=== PATIENT | female | born 1960 | race Caucasian/White ===

== ENCOUNTER 2017-01-11 19:52 | Emergency (ER) | payer OTHER ==
[~2017-01-11] VITALS: Ht 162.6 cm; Wt 77.1 kg
[2017-01-11 20:00] VITALS: BP 136/63
[2017-01-11] MEDS ORDERED: HYDROcodone/APAP 5/325MG 1 TAB TABLET PO ONE (21:15)
[2017-01-11] MEDS ORDERED: IBUPROFEN 600 MG TABLET. PO ONE (21:15)
[2017-01-11] MEDS ORDERED: IBUP600T16 PO (22:07)
[2017-01-11] MEDS ORDERED: HYDR-971 PO (22:07)
--- NOTE | 2017-01-11 22:07 | PHYS DOC ---
Past History Past Medical History: Arthritis, Hypothyroid Past Surgical History: No Surgical History Alcohol Use: None Drug Use: None Adult General Chief Complaint Chief Complaint: FINGER INJURY HPI HPI Patient is a 56-year-old female who presents here today complaining of pain to her right pinky finger that occurred while she was taken care of her baby. Patient reports that she tried to grab the baby and felt a pop to her pinky finger. Patient presents here today complaining of pain in that area. Patient has full range of motion to that finger without any complaints of restriction other than from pain. This is a 56-year-old female who presents to the ER today with a fracture to her fifth MCP. Patient's been placed in a ulnar gutter splint to give her support and protection of that fracture. Fracture does not appear to be significantly dislocated or shortened. Patient be given the phone number for Dr. Mcclain and will be instructed to follow-up with her primary care physician for further evaluation of the fracture. Patient be given a prescription for ibuprofen and [place] to help her with her pain. Ulnar gutter splint was applied. Patient is neurovascularly intact after splint application. Review of Systems Review of Systems Constitutional: Denies fever or chills [] Eyes: Denies change in visual acuity, redness, or eye pain [] HENT: Denies nasal congestion or sore throat [] All other review systems are negative except as documented in the history of present illness portion. Current Medications Current Medications Current Medications Medications (Trade) Dose Ordered Sig/Kisha Start Time Stop Time Status Last Admin Dose Admin Acetaminophen/ Hydrocodone Bitart (Lortab 5/325) 1 tab 1X ONCE 01/11/17 21:15 01/11/17 21:24 DC 01/11/17 21:15 1 TAB Ibuprofen (Motrin) 600 mg 1X ONCE 01/11/17 21:15 01/11/17 21:24 DC 01/11/17 21:15 600 MG Allergies Allergies Allergies Coded Allergies Type Severity Reaction Last Updated Verified No Known Drug Allergies 01/11/17 No Physical Exam Physical Exam Constitutional: Well developed, well nourished, no acute distress, non-toxic appearance. HENT: Normocephalic, Eyes: no discharge. Neck: Normal range of motion Cardiovascular:Heart rate regular rhythm Lungs & Thorax: Bilateral breath sounds clear to auscultation Abdomen: Bowel sounds normal, soft, no tenderness, no masses, no pulsatile masses. Skin: Warm, dry, no erythema, no rash. Extremities: Tenderness to palpation with soft tissue swelling to her proximal phalanx of her fifth digit on the right hand. Full range of motion was intact. No deformity consistent with dislocation. Neurovascularly intact. Neurologic: Alert and oriented X 3, normal motor function, normal sensory function, no focal deficits noted. Psychologic: Affect normal, judgement normal, mood normal. Current Patient Data Vital Signs Vital Signs Date Time Temp Pulse Resp B/P (MAP) Pulse Ox O2 Delivery O2 Flow Rate FiO2 01/11/17 20:00 97.9 87 18 98 Room Air EKG EKG [] Radiology/Procedures Radiology/Procedures [] Course & Med Decision Making Course & Med Decision Making Pertinent Labs and Imaging studies reviewed. (See chart for details) [] Dragon Disclaimer Dragon Disclaimer This chart was dictated in whole or in part using Voice Recognition software in a busy, high-work load, and often noisy Emergency Department environment. It may contain unintended and wholly unrecognized errors or omissions. Departure Departure: Impression: Primary Impression: Fracture of proximal phalanx of finger of right hand Disposition: HOME, SELF-CARE Condition: IMPROVED Referrals: THONG CRUZ (PCP) ROBSON MCCLAIN MD Patient Instructions: Cast or Splint Care, Finger Fracture (Phalangeal)- [facility] Additional Instructions: Please call Dr. Robson Mcclain for an appointment. He is one of our orthopedists from [facility]. Please make sure you let him know that you're seen and evaluated here at [facility] so they can expedite your appointment. Scripts Hydrocodone Bit/Acetaminophen (NORCO 5-325 TABLET) 1 Each Tablet 1 TAB PO PRN Q6HRS Y for PAIN, #12 TAB 0 Refills Prov: BROCK HUDSON MD 01/11/17 Ibuprofen (IBUPROFEN) 600 Mg Tablet 600 MG PO QID Y for PAIN, #20 Prov: BROCK HUDSON MD 01/11/17 BROCK HUDSON MD Jan 11, 2017 22:07
--- NOTE | 2017-01-12 07:44 | RAD ---
Exam: Right fingers radiograph 01/11/2017 at 2021 hours Indication: Right fifth digit injury Comparison: None available Technique: 4 views of the right fingers are provided. Findings: There is obliquely oriented displaced and comminuted fracture of the proximal phalanx the fifth digit. There is suggestion of intra-articular extension to the metacarpophalangeal joint. Mild apex dorsal angulation. No osseous erosion or soft tissue gas. Bone mineralization is within normal limits. Impression: Obliquely oriented comminuted and displaced fracture of the proximal phalanx of the fifth digit with suggestion of intra-articular extension to the metacarpophalangeal joint.
== END 2017-01-11 22:09 | disposition home or self-care (01) ==
LOC: ER 19:52
DX: S62.616A Displaced fracture of proximal phalanx of right little finger, initial encounter for closed fracture (principal); E03.9 Hypothyroidism, unspecified; M19.90 Unspecified osteoarthritis, unspecified site; X58.XXXA Exposure to other specified factors, initial encounter; Y93.89 Activity, other specified; Y99.8 Other external cause status; Y92.89 Other specified places as the place of occurrence of the external cause
CPT/HCPCS: 29125; 73140; 99284-25

== ENCOUNTER → 2017-01-20 | Outpatient (CLI) | payer OTHER ==
[2017-01-11 20:00] VITALS: BP 136/63
[~2017-01-20] MED LIST: HYDR-971 PO; IBUP600T16 PO
--- NOTE | 2017-01-20 10:55 | RAD ---
Right Little finger, 3 views, 01/20/2017: History: Follow-up fracture Comparison is made to a study from 01/11/2017. There is a nondisplaced fracture of the proximal phalanx of the little finger. Its alignment has improved since the previous study. The fracture fragments appear to be in good position for healing. No bridging callus is evident. No other fracture or dislocation is seen. IMPRESSION: Improved alignment of the nondisplaced fracture of the proximal phalanx of the little finger.
== END | disposition home or self-care (01) ==
LOC: DXRAD 09:56
PROVIDERS: ATTEND Orthopaedic Surgery
DX: S62.646D Nondisplaced fracture of proximal phalanx of right little finger, subsequent encounter for fracture with routine healing (principal); X58.XXXD Exposure to other specified factors, subsequent encounter
CPT/HCPCS: 73140

== ENCOUNTER → 2017-02-08 | Outpatient (CLI) | payer OTHER ==
[2017-01-11 20:00] VITALS: BP 136/63
--- NOTE | 2017-02-08 13:57 | RAD ---
Bone densitometry scan, 02/08/2017: History: Ovarian failure, osteoporosis The lumbar spine and right hip were examined utilizing a DEXA technique. The bone mineral density in the lumbar spine as measured from the L1-L4 levels is 1.03 g/sq cm. This yields a T score of -1.2 compatible with osteopenia. The total T score at the right hip is -0.8 which is in the normal range. IMPRESSION: Osteopenia in the lumbar spine.
== END | disposition home or self-care (01) ==
LOC: DXRAD 13:07
PROVIDERS: ATTEND Obstetrics & Gynecology
DX: M85.88 Other specified disorders of bone density and structure, other site (principal); M81.0 Age-related osteoporosis without current pathological fracture
CPT/HCPCS: 77080

== ENCOUNTER 2017-05-19 19:56 | Emergency (ER) | payer OTHER ==
[~2017-05-19] VITALS: Ht 162.6 cm; Wt 66.7 kg
[2017-05-19] MEDS ORDERED: ONDANSETRON ODT 4 MG TAB.RAPDIS PO ONE (20:15)
[2017-05-19] MEDS ORDERED: PROMETHAZINE 25 MG TABLET. PO ONE (20:15)
[2017-05-19 20:55] LABS: BACTERIA,URINE FEW /HPF (0-FEW); BILIRUBIN,URINE NEG (NEG); CLARITY,URINE CLOUDY; COLOR,URINE YELLOW; GLUCOSE,URINE NEG (NEG); NITRITE,URINE NEG (NEG); RBC,URINE 20-40 /HPF (0-2); SQUAMOUS EPITHELIAL CELL,UR MANY /LPF; UROBILINOGEN,URINE 1 mg/dL (0.2 mg/dL)
[2017-05-19] MEDS ORDERED: PROMETHAZINE 25 MG in IV NORMAL SALINE 50ML 50 ML IV PRN (21:00)
[2017-05-19] MEDS ORDERED: FAMOTIDINE 20 MG/2 ML VIAL IVP ONE (21:15)
[2017-05-19] MEDS ORDERED: IV NORMAL SALINE 1,000ML 1,000 ML IV SCH ×2 (21:15→23:00)
[2017-05-19] MEDS ORDERED: ONDANSETRON PF 4 MG/2 ML VIAL. IV ONE (21:15)
[2017-05-19 21:32] LABS: BASO % 0 % (0-3); EOS % 0 % (0-3); HEMATOCRIT 40.2 % (36.0-47.0); HEMOGLOBIN 13.8 g/dL (12.0-15.5); LYMPH # 0.5 x10^3/uL (1.0-4.8); LYMPH % 5 % (24-48); MEAN CORPUSCULAR HEMOGLOBIN 31 pg (25-35); MEAN CORPUSCULAR HGB CONC 35 g/dL (31-37); MEAN CORPUSCULAR VOLUME 89 fL (79-100); MONO # 0.3 x10^3/uL (0.0-1.1); MONO % 3 % (0-9); NEUT # 9.4 x10^3uL (1.8-7.7); NEUT % 92 % (31-73); PLATELET COUNT 225 x10^3/uL (140-400); RED BLOOD COUNT 4.52 x10^6/uL (3.50-5.40); RED CELL DISTRIBUTION WIDTH 13.3 % (11.5-14.5); WHITE BLOOD COUNT 10.3 x10^3/uL (4.0-11.0)
[2017-05-19] MEDS ORDERED: IV NORMAL SALINE 50ML 50 ML ONE (21:41)
[2017-05-19] MEDS ORDERED: PROMETHAZINE 25 MG/ML VIAL IV ONE (21:41)
[2017-05-19 21:42] LABS: ALBUMIN 3.8 g/dL (3.4-5.0); ALBUMIN/GLOBULIN RATIO 1.1 (1.0-1.7); CALCIUM 8.4 mg/dL (8.5-10.1); CREATININE 0.8 mg/dL (0.6-1.0); GFR 73.4; POTASSIUM 3.4 mmol/L (3.5-5.1); TOTAL BILIRUBIN 0.5 mg/dL (0.2-1.0); TOTAL PROTEIN 7.4 g/dL (6.4-8.2)
--- NOTE | 2017-05-19 21:58 | PHYS DOC ---
General Chief Complaint: NAUSEA/VOMITING/DIARRHEA Stated Complaint: FEVER,VOMITING Time Seen by MD: 20:00 Source: patient Exam Limitations: no limitations Problems: History of Present Illness Initial Comments Patient is a 57-year-old female who comes to the ED complaining of vomiting and diarrhea. Patient states that she awoke at midnight with epigastric discomfort and cramping, she states that she's had intermittent periods of vomiting and diarrhea since that time. She states she's been unable to keep anything down, denies any focal abdominal pain complaints and no blood in stools or emesis. She 's had chills and sweats no measured fevers, the past few hours she's had a headache especially when sitting up and trying to walk. Denies any chest pain or difficulty breathing no travel or bad food exposure. She is afebrile on arrival heart rate 107 beats per minute and is very nauseous pale and ill- appearing. Timing/Duration: other Severity: severe Modifying Factors: worse with eating Associated Symptoms: headaches, nausea/vomiting, other Allergies: Coded Allergies: No Known Drug Allergies (Unverified , 01/11/17) Past Medical History Medical History: arthritis, other (hypothyroid) Surgical History: no surgical history Social History Smoker: non-smoker Alcohol: none Drugs: none Review of Systems Constitutional: chills, denies diaphoresis, denies fever, malaise Respiratory: denies cough, denies shortness of breath Cardiovascular: denies chest pain, denies palpitations Gastrointestinal: see HPI Genitourinary: denies dysuria, denies frequency, denies hematuria Musculoskeletal: denies back pain, denies joint swelling, denies neck pain Psychiatric/Neurological: headache, denies numbness, denies paresthesia Physical Exam General Appearance: WD/WN, moderate distress Ear, Nose, Throat: hearing grossly normal, normal ENT inspection, normal pharynx (dry mucous membranes) Neck: non-tender, supple Respiratory: normal breath sounds, no respiratory distress Cardiovascular: normal peripheral pulses, tachycardia Gastrointestinal: soft (nondistended, abdominal muscle tenderness without rebound guarding or palpable mass negative Dhaliwal negative McBurney) Rectal: deferred Back: no CVA tenderness, no vertebral tenderness Extremities: non-tender, normal inspection Neurologic/Psychiatric: rack pusher II-XII nml as tested, no motor/sensory deficits, alert, oriented x 3 Skin: pallor (poor turgor) Orders, Labs, Meds 2157: Labs reviewed with the patient, potassium 3.4 and urinalysis with contamination. The patient is just now receiving her IV hydration, time in department is over 2 hours she will have a prolonged ED course due to high ED volume and need for IV hydration. Phenergan and Zofran resolved the patient's nausea with no further emesis. She was rechecked after 1 L normal saline IV bolus and her headache had resolved she was still feeling very weak, after repeat bolus the patient was feeling much better. I discussed signs and symptoms to monitor as well as indications for urgent return to the department. Discussed oral hydration and dietary modification, patient's questions were answered she expressed agreement and understanding of treatment plan Departure Time of Disposition: 23:42 Disposition: 01 HOME, SELF-CARE Diagnosis: gastroenteritis, dehydration, mild hypokalemia Condition: IMPROVED Patient Instructions: Dehydration, Adult, [id number], Hypokalemia-Brief, Viral Gastroenteritis, [id number] Additional Instructions: Please review the patient education materials given by ED staff. Clear liquids, advance diet slowly as tolerated. Aggressive hydration with Gatorade and water. Eat one banana daily to supplement her potassium until follow-up with your doctor. Zofran ODT start pack was dispensed to you, take one every 6 hours as needed for nausea. Prescription: Zofran ODT, dicyclomine Follow-up with your doctor in 3-5 days if not better. Return to ED with new or changing symptoms. LUISA SINGER DO May 19, 2017 21:58
[2017-05-19] MEDS ORDERED: ONDA4TAB10 PO (23:42)
[2017-05-19] MEDS ORDERED: DICY20TA3 PO (23:42)
[2017-05-19] MEDS ORDERED: ONDANSETRON 4MG ODT 4TABLET STARTPACK. PO ONE (23:45)
[2017-05-19 23:58] VITALS: BP 116/79
== END 2017-05-19 23:58 | disposition home or self-care (01) ==
LOC: ER 19:56
DX: K52.9 Noninfective gastroenteritis and colitis, unspecified (principal); E87.6 Hypokalemia; E86.0 Dehydration; E03.9 Hypothyroidism, unspecified
CPT/HCPCS: 36415; 80053; 81001; 83690; 85025; 96361; 96365; 96375; 99285; J2405; J2550; Q0162; Q0169; S0028; J7030

== ENCOUNTER 2020-05-07 17:19 | Emergency (ER) | payer OTHER ==
[~2020-05-07] VITALS: Ht 162.6 cm; Wt 68.0 kg
[~2020-05-07 17:19] MED LIST changes: +DICY20TA3 PO; +HYDR-3165 PO; -HYDR-971 PO; +ONDA4TAB10 PO
--- NOTE | 2020-05-07 17:41 | PHYS DOC ---
Past History Past Medical History: Arthritis, Hypothyroid (ELEANOR DARDEN MD) Past Surgical History: No Surgical History (ELEANOR DARDEN MD) Alcohol Use: None Drug Use: None (ELEANOR DARDEN MD) General Adult HPI: HPI: Patient is a 59 year old female who presents with above hx and complaints (ELEANOR DARDEN MD) HPI: Patient is a 59-year-old female presenting to the ED today with complaints of nausea, vomiting, generalized mild intermittent headache, bloating, constipation, symptoms began this morning. Patient denies anything specifically exacerbating or relieving her symptoms. She states she has had similar symptoms multiple times before. Denies any hematemesis. She states she has tried taking Tums with no relief. (ALBERT CARY APRN) Review of Systems: Review of Systems: Constitutional: Denies fever or chills Eyes: Denies change in visual acuity HENT: Denies nasal congestion or sore throat Respiratory: Denies cough or shortness of breath Cardiovascular: Denies chest pain or edema GI: Denies abdominal pain, nausea, vomiting, bloody stools or diarrhea : Denies dysuria Musculoskeletal: Denies back pain or joint pain Integument: Denies rash Neurologic: Denies headache, focal weakness or sensory changes Endocrine: Denies polyuria or polydipsia Lymphatic: Denies swollen glands Psychiatric: Denies depression or anxiety (ELEANOR DARDEN MD) Review of Systems: Constitutional: Denies fever or chills [] Eyes: Denies change in visual acuity, redness, or eye pain [] HENT: Denies nasal congestion or sore throat [] Respiratory: Denies cough or shortness of breath [] Cardiovascular: Bandlike pain around the chest around her breast region GI: Denies abdominal pain, nausea, vomiting, bloody stools or diarrhea [] : Denies dysuria or hematuria [] Musculoskeletal: Denies back pain or joint pain [] Integument: Denies rash or skin lesions [] Neurologic: Denies headache, focal weakness or sensory changes [] All other systems were reviewed and found to be within normal limits, except as documented in this note. (ALBERT CARY APRN) Allergies: Allergies: Allergies Coded Allergies Type Severity Reaction Last Updated Verified No Known Drug Allergies 01/11/17 No (ELEANOR DARDEN MD) Physical Exam: PE: Constitutional: Well developed, well nourished, no acute distress, non-toxic appearance. [] HENT: Normocephalic, atraumatic, bilateral external ears normal, oropharynx moist, no oral exudates, nose normal. [] Eyes: PERRLA, EOMI, conjunctiva normal, no discharge. [] Neck: Normal range of motion, no tenderness, supple, no stridor. [] Cardiovascular:Heart rate regular rhythm, no murmur [] Lungs & Thorax: Bilateral breath sounds clear to auscultation [] Abdomen: Bowel sounds normal, soft, no tenderness, no masses, no pulsatile masses. [] Skin: Warm, dry, no erythema, no rash. [] Back: No tenderness, no CVA tenderness. [] Extremities: No tenderness, no cyanosis, no clubbing, ROM intact, no edema. [] Neurologic: Alert and oriented X 3, normal motor function, normal sensory function, no focal deficits noted. [] Psychologic: Affect normal, judgement normal, mood normal. [] (ELEANOR DARDEN MD) PE: Constitutional: Well developed, well nourished, no acute distress, non-toxic appearance. [] HENT: Normocephalic, atraumatic, bilateral external ears normal, oropharynx moist, no oral exudates, nose normal. [] Eyes: PERRLA, EOMI, conjunctiva normal, no discharge. [] Neck: Normal range of motion, no tenderness, supple, no stridor. [] Cardiovascular:Heart rate regular rhythm, no murmur [] Lungs & Thorax: Bilateral breath sounds clear to auscultation [] Abdomen: Bowel sounds normal, soft, no tenderness, no masses, no pulsatile masses. [] Skin: Warm, dry, no erythema, no rash. [] Back: No tenderness, no CVA tenderness. [] Extremities: No tenderness, no cyanosis, no clubbing, ROM intact, no edema. [] Neurologic: Alert and oriented X 3, normal motor function, normal sensory function, no focal deficits noted. [] Psychologic: Patient appears anxious. She was tearful (ALBERT CARY APRN) EKG: EKG: [] (ELEANOR DARDEN MD) Radiology/Procedures: Radiology/Procedures: [] (ELEANOR DARDEN MD) Radiology/Procedures: PROCEDURE: ABDOMEN SUPINE & UPRIGHT Abdomen 2 views portable at 1737: Reason for examination: Abdominal pain with bloating. There is no gross organomegaly. Psoas muscles are symmetric. No free air is seen under the diaphragms. The bowel gas pattern is nonspecific and nonobstructive. Calcifications consistent with phleboliths are seen in the right pelvis. No acute bony abnormalities are seen. IMPRESSION: Nonspecific nonobstructive bowel gas pattern. Electronically signed by: Leti Casanova MD (05/07/2020 7:09 PM) [facility] DICTATED AND SIGNED BY: LETI CASANOVA MD DATE: 05/07/201907 CC: ELEANOR DARDEN MD; ALBERT CARY APRN; CRISTIANE WELLINGTON ~MTH0 0 PROCEDURE: CT ABD PELV W/ IV CONTRST ONLY Exam: CT abdomen and pelvis with contrast INDICATION: Abdominal bloating TECHNIQUE: Sequential axial images through the abdomen and pelvis obtained following the administration of 60 mL of Omni 300 IV contrast. Sagittal and coronal reformatted images were reconstructed from the axial data and reviewed. Comparisons: None FINDINGS: Heart size is normal. No pericardial effusion. Visualized lung bases are clear. No pleural effusion. Liver, spleen, pancreas, and adrenals are unremarkable. Gallstones noted within the gallbladder. No perinephric inflammation or hydronephrosis. No renal or ureteral calculi are identified. Several subcentimeter hypoattenuating cystic lesions noted within the kidneys bilaterally small to characterize. Bladder is decompressed not well evaluated. Uterus is absent. No abnormal adnexal mass. Diverticulosis noted in the sigmoid colon without evidence of acute diverticul itis. Remainder large and small bowel are unremarkable. Appendix is normal. No free intra-abdominal air or fluid. No obstruction. Abdominal aorta has a normal course and caliber. Abdominal vasculature is patent. No enlarged intra-abdominal lymph nodes are identified. No suspicious osseous lesions or acute fractures. IMPRESSION: 1. Diverticulosis without evidence of acute diverticulitis. 2. Cholelithiasis Exposure: One or more of the following in the visualized dose reduction techniques were utilized for this examination: 1. Automated exposure control 2. Adjustment of the MA and/or KV according to patient size 3. Use of iterative of reconstructive technique Electronically signed by: Roseline Blair MD (05/07/2020 8:01 PM) [facility] DICTATED AND SIGNED BY: ROSELINE BLAIR MD DATE: 05/07/201956 CC: ELEANOR DARDEN MD; ALBERT CARY APRN; CRISTIANE WELLINGTON ~MTH0 0 (ALBERT CARY APRN) Heart Score: Risk Factors: Risk Factors: DM, Current or recent (<one month) smoker, HTN, HLP, family history of CAD, obesity. Risk Scores: Score 0 - 3: 2.5% MACE over next 6 weeks - Discharge Home Score 4 - 6: 20.3% MACE over next 6 weeks - Admit for Clinical Observation Score 7 - 10: 72.7% MACE over next 6 weeks - Early Invasive Strategies (ELEANOR DARDEN MD) Course & Med Decision Making: Course & Med Decision Making Pertinent Labs and Imaging studies reviewed. (See chart for details) [] (ELEANOR DARDEN MD) Course & Med Decision Making This is a 59-year-old female patient presenting to the ED today complaining of nausea, vomiting, generalized headache, bloating, constipation. Symptoms began this morning. CBC with a normal WBC, CMP with bilirubin of 1.9, AST 611, ALT 1393, ALK 251. Urine noted for moderate amount of bilirubin among other things no infection. CT of the abdomen and pelvic was noted for cholelithiasis, diverticulosis with no diverticulitis. Spoke with Dr. Escamilla who accepted patient for admission. Spoke with Dr. Rossi who will follow up with patient tomorrow (ALBERT CARY APRN) Dragon Disclaimer: Dragon Disclaimer: This electronic medical record was generated, in whole or in part, using a voice recognition dictation system. (ELEANOR DARDEN MD) Departure Departure: Impression: Primary Impression: Cholelithiasis Qualified Codes: K80.20 - Calculus of gallbladder without cholecystitis without obstruction Additional Impressions: Transaminitis Nausea and vomiting Qualified Codes: R11.2 - Nausea with vomiting, unspecified Headache Qualified Codes: R51.9 - Headache, unspecified Abdominal bloating Disposition: 05 DC/TRF OTHER TYPE INSTITUTI Condition: STABLE Referrals: CRISTIANE WELLINGTON (PCP) Dragon Disclaimer This chart was dictated in whole or in part using Voice Recognition software in a busy, high-work load, and often noisy Emergency Department environment. It may contain unintended and wholly unrecognized errors or omissions. (ELEANOR DARDEN MD) Attending Co-Sign Attending Co-Sign The patient was seen and interviewed as well as examined at the bedside. The chart was reviewed. The case was discussed. Agree with the plan of care. (ELEANOR DARDEN MD) ELEANOR DARDEN MD May 07, 2020 17:41 ALBERT CARY APRN May 07, 2020 17:59
[2020-05-07] MEDS: ONDANSETRON PF 4 MG/2 ML VIAL. IVP ONE (18:00)
[2020-05-07] MEDS: IV RINGERS SOLUTION,LACTATED 1,000 ML IV ONE (18:00)
[2020-05-07 18:16] LABS: BASO # 0.1 x10^3/uL (0.0-0.2); BASO % 1 % (0-3); EOS % 0 % (0-3); HEMATOCRIT 44.3 % (36.0-47.0); HEMOGLOBIN 14.7 g/dL (12.0-15.5); LYMPH # 0.6 x10^3/uL (1.0-4.8); LYMPH % 5 % (24-48); MEAN CORPUSCULAR HEMOGLOBIN 30 pg (25-35); MEAN CORPUSCULAR HGB CONC 33 g/dL (31-37); MEAN CORPUSCULAR VOLUME 90 fL (79-100); MONO # 0.3 x10^3/uL (0.0-1.1); MONO % 3 % (0-9); NEUT # 9.3 x10^3uL (1.8-7.7); NEUT % 91 % (31-73); PLATELET COUNT 307 x10^3/uL (140-400); RED CELL DISTRIBUTION WIDTH 13.6 % (11.5-14.5); WHITE BLOOD COUNT 10.2 x10^3/uL (4.0-11.0)
[2020-05-07 18:24] LABS: CLARITY,URINE HAZY; COLOR,URINE AMBER
[2020-05-07 18:25] LABS: BACTERIA,URINE FEW /HPF (0-FEW); BILIRUBIN,URINE MOD (NEG); GLUCOSE,URINE NEG (NEG); NITRITE,URINE NEG (NEG); RBC,URINE 20-40 /HPF (0-2); SQUAMOUS EPITHELIAL CELL,UR MOD /LPF; WBC,URINE RARE /HPF (0-4)
[2020-05-07 18:26] LABS: CALCIUM 9.4 mg/dL (8.5-10.1); GFR 56.4; POTASSIUM 3.7 mmol/L (3.5-5.1)
[2020-05-07 18:27] LABS: BARBITURATES NEG (NEG); BENZODIAZEPINES NEG (NEG); CANNABINOIDS NEG (NEG); COCAINE NEG (NEG); METHADONE NEG (NEG); OPIATES NEG (NEG); PHENCYCLIDINE NEG (NEG)
[2020-05-07 18:30] LABS: AMPHETAMINE/METHAMPHETAMINE NEG (NEG)
[2020-05-07 18:37] LABS: ALBUMIN 4.2 g/dL (3.4-5.0); ALBUMIN/GLOBULIN RATIO 1.1 (1.0-1.7); TOTAL BILIRUBIN 1.9 mg/dL (0.2-1.0); TOTAL PROTEIN 8.1 g/dL (6.4-8.2)
--- NOTE | 2020-05-07 19:11 | RAD ---
Abdomen 2 views portable at 1737: Reason for examination: Abdominal pain with bloating. There is no gross organomegaly. Psoas muscles are symmetric. No free air is seen under the diaphragms . The bowel gas pattern is nonspecific and nonobstructive. Calcifications consistent with phleboliths are seen in the right pelvis. No acute bony abnormalities are seen. IMPRESSION: Nonspecific nonobstructive bowel gas pattern. Electronically signed by: Leti Davenport MD (05/07/2020 7:09 PM) [facility]
[2020-05-07] MEDS: IOHEXOL 300 MG/ML 75 ML VIAL. IV ONE (19:39)
--- NOTE | 2020-05-07 20:04 | RAD ---
Exam: CT abdomen and pelvis with contrast INDICATION: Abdominal bloating TECHNIQUE: Sequential axial images through the abdomen and pelvis obtained following the administrati on of 60 mL of Omni 300 IV contrast. Sagittal and coronal reformatted images were reconstructed from the axial data and reviewed. Comparisons: None FINDINGS: Heart size is normal. No pericardial effusion. Visualized lung bases are clear. No pleural effusion. Liver, spleen, pancreas, and adrenals are unremarkable. Gallstones noted within the gallbladder. No perinephric inflammation or hydronephrosis. No renal or ureteral calculi are identified. Several s ubcentimeter hypoattenuating cystic lesions noted within the kidneys bilaterally small to characteriz e. Bladder is decompressed not well evaluated. Uterus is absent. No abnormal adnexal mass. Diverticulosis noted in the sigmoid colon without evidence of acute diverticulitis. Remainder large a nd small bowel are unremarkable. Appendix is normal. No free intra-abdominal air or fluid. No obstruc tion. Abdominal aorta has a normal course and caliber. Abdominal vasculature is patent. No enlarged intra-abdominal lymph nodes are identified. No suspicious osseous lesions or acute fractures. IMPRESSION: 1. Diverticulosis without evidence of acute diverticulitis. 2. Cholelithiasis Exposure: One or more of the following in the visualized dose reduction techniques were utilized for this examination: 1. Automated exposure control 2. Adjustment of the MA and/or KV according to patient size 3. Use of iterative of reconstructive technique Electronically signed by: Roseline Bowling MD (05/07/2020 8:01 PM) [facility]
[2020-05-07 21:05] VITALS: BP 146/56
[2020-05-07] MEDS: ACETAMINOPHEN 500 MG TABLET PO ONE (21:48)
[2020-05-07] MEDS: MORPHINE SULFATE 2 MG/ML DISP.SYRIN. IV ONE (21:49)
[2020-05-07 22:08] LABS: ACETAMIN < 2.0 mcg/mL (10-30); SALIC < 2.8 mg/dL (2.8-20.0)
== END 2020-05-07 22:35 | disposition short-term general hospital (02) ==
LOC: ER 17:19
DX: K80.20 Calculus of gallbladder without cholecystitis without obstruction (principal); R74.01 Elevation of levels of liver transaminase levels; R11.2 Nausea with vomiting, unspecified; R51.9 Headache, unspecified; R14.0 Abdominal distension (gaseous); M19.90 Unspecified osteoarthritis, unspecified site; E03.9 Hypothyroidism, unspecified
CPT/HCPCS: 36415; 74019; 74177; 80053; 80307; 80329; 81001; 83690; 85025; 96361; 96374; 96375; 99285; G0480; J2270; J2405; J7120; Q9967

== ENCOUNTER → 2021-05-06 | Outpatient (CLI) | payer OTHER ==
[~2021-05-06] MED LIST changes: +DICY20TA PO; -DICY20TA3 PO
--- NOTE | 2021-05-06 13:22 | RAD ---
BILATERAL DIGITAL SCREENING 2-D AND 3-D MAMMOGRAM INDICATION: Routine screening. COMPARISON: March 02, 2015 October 18, 2011. Interpretation was made using CAD. FINDINGS: Breast Density: There are scattered areas of fibroglandular density. RIGHT BREAST: No suspicious masses, calcifications or areas of architectural distortion are seen. LEFT BREAST: No suspicious masses, calcifications or areas of architectural distortion are seen. IMPRESSION: 1. No imaging evidence of malignancy. ASSESSMENT: BI-RADS 1. Negative. RECOMMENDATION: Routine annual screening mammogram. The facility will notify the patient of the results via mail. Patient information will be entered int o the mammography reminder system with a target recall date for the next mammogram. A reminder letter will be generated by the facility. Electronically signed by: Xochitl Jauregui MD (05/06/2021 1:19 PM) [id number]
--- NOTE | 2021-05-06 15:38 | RAD ---
Bone Densitometry History: Screening Findings: Bone Densitometry was performed with dual photon absorption of the lumbar spine and proximal femurs. Lumbar Spine: Bone density is 1.076 g/cm2 for L1-L4. T-score is -0.9. Z-score is 0.4. Total proximal right femur: Bone density is 0.878 g/cm2. T-score is 1.0. Z-score is -0.1. IMPRESSION: Normal bone mineral density in the lumbar spine and right proximal femur. World Health Organization definition of osteoporosis and osteopenia for women: normal equal s T score at or above -1.0 standard deviations; osteopenia equals T score between -1.0 and -2.5 stand venancio deviations; osteoporosis equals T score at or below -2.5 standard deviations. Electronically signed by: Viviane Mccauley MD (05/06/2021 3:36 PM) [id number]
== END ==
LOC: MAMMO 08:56
PROVIDERS: ATTEND Obstetrics & Gynecology
DX: Z12.31 Encounter for screening mammogram for malignant neoplasm of breast (principal); M81.0 Age-related osteoporosis without current pathological fracture
CPT/HCPCS: 77063; 77067; 77080